=== PATIENT | female | born 1950 | race Caucasian/White ===

== ENCOUNTER → 2017-03-02 | Day surgery (SDC) | payer OTHER ==
[~2017-03-02] MED LIST: CITALOPRAM HYDR40 MG PO; LAMOTRIGINE200 MG PO; PERCOCET 325 MG1 TA2 PO; PRILOSEC20 MG PO; THE MEDICINE S400 IU PO; TRAZODONE HCL100 MG PO; VIT B-6100 MG PO; VITAMIN C1 CRY PO
--- NOTE | 2017-03-02 18:18 | Operative Report ---
Operative/Inv Procedure Report Surgery Date: 03/02/17 Name of Procedure: Hysteroscopy dilatation and curettage, also keys punch biopsy of the left labia majora Pre-Operative Diagnosis: Markedly thickened endometrium in a postmenopausal patient. Also clinical evidence of a skin condition that appears to be lichen sclerosis and atrophicus. Patient preferred vulvar biopsy to be done in the OR with the D&C Post-Operative Diagnosis: Same fundal septum noted Estimated Blood Loss: Less than 25 ML Surgeon/Aluminum Boats Assembler: EDWARD MALHOTRA,GARY Stroud Anesthesia: IV sedation Monitors: Blood pressure cuff, EKG electrodes, pulse oximeter IV Fluids: 750 ML crystalloid Implants: None Urine Output: Not measured no catheterization performed Drains: None Specimens: 1.) ECC 2.) EMC 3.) Vulvar biopsy of left labia majora Complications: None Condition: good Operative Indication: Patient with markedly elevated measurement of endometrium on transvaginal ultrasound and clinical evidence of likely lichen sclerosus and atrophicus. Patient had been advised for hysteroscopy D&C and also vulvar biopsy. Patient was offered for biopsy in the office but preferred to have it done on the same day as a hysteroscopy D&C Operative/Procedure Note Note: Patient was brought to the operating room and placed on the OR table in the dorsal supine position. Timeout was discussed by the team and agreed upon. Antibiotics were not required for the surgery. Patient was given IV sedation. After adequate IV sedation, patient was placed in the dorsal lithotomy position utilizing the yellow fin leg supports. Perineal area and vaginal area were prepped and draped in usual sterile fashion. M under anesthesia showed a normal -size uterus adnexa nonpalpable. The vulvar skin changes were consistent with lichen sclerosus and atrophicus there was almost complete lateral loss of the left labium minora into the surrounding labia majora there was fusion in the midline over the clitoris. No evidence of leukoplakia no fissures no rashes. SideArm speculum was placed in the vagina and cervix visualized. Single-tooth tenaculum placed on the anterior lip of the cervix. Endocervical curettage was performed and the specimen was submitted separately. Cervix carefully dilated to 6 Hegar dilator. The hysteroscope was introduced to the endocervical canal into the endometrial cavity. Fundal septum was noted small amount of fluffy tissue as it was noted no mucosal myomas noted no polyps noted. No increased vascularity to the uterine lining. There was no evidence of uterine perforation. After visualization of the uterine cavity the hysteroscope was removed. Uterine cavity quickly curetted and the tissue was obtained submitted separately as endometrial curettage. All instruments removed from the vagina at this time there was good hemostasis. We then turned our attention to the left labia majora with the lateral loss of labia minora. A 5 mm punch biopsy is taken at this junction site. Monsel's was not adequate for hemostasis 03 small sutures of 3-0 Biosyn were used for hemostasis. Specimens for the lower port #1 endocervical curettage #2 endometrial curettage and #3 vulvar biopsy. At this time sponge and instrument count and needle count were correct 2. Patient was returned to the dorsal supine supine position and the patient was awakened from anesthesia and taken to recovery in good condition. Findings: Uterine cavity showed fundal septum no significant polyps no evidence of submucosal myomas. Some fluffy tissue within the uterine cavity no increased vascularity. Specimens of endocervical curettage and endometrial curettage were submitted to the lab. The clinical appearance of the skin of the vulva with bilateral loss of the left labial Minora virtually disappearing into the skin of the left labia majoram midline fusion of the skin over the clitoris and some loss of the right labia minora gave the impression of lichen sclerosus and atrophicus. No evidence of leukoplakia no fissures no rashes no vesicles noted. Biopsy was taken at the junction of lateral loss of the left labia minora and left labia majora. Discharge Disposition: PACU
== END ==
LOC: STS 02:31
DX: Q51.2 Other doubling of uterus (principal); N90.89 Other specified noninflammatory disorders of vulva and perineum; R93.8 Abnormal findings on diagnostic imaging of other specified body structures; K21.9 Gastro-esophageal reflux disease without esophagitis; E66.9 Obesity, unspecified; Z68.36 Body mass index [BMI] 36.0-36.9, adult; Z72.0 Tobacco use; D50.9 Iron deficiency anemia, unspecified
CPT/HCPCS: 88305; J0131; J2250